=== PATIENT | male | born 1950 | race Caucasian/White ===

== ENCOUNTER 2018-01-22 11:34 | Emergency (ER) | payer OTHER ==
[~2018-01-22] VITALS: Ht 172.7 cm; Wt 105.1 kg
[2018-01-22 12:33] LABS: APPEARANCE CLEAR ((CLEAR)); BILIRUBIN NEGATIVE; BLOOD SMALL; COLOR YELLOW ((YELLOW)); GLUCOSE (STRIP) NEGATIVE; KETONES NEGATIVE; LEUKOCYTES NEGATIVE; NITRITE NEGATIVE; PROTEIN (STRIP) NEGATIVE; SPECIFIC GRAVITY 1.021 (1.000-1.030); UROBILINOGEN 0.2 MG/DL (0.2-1.0)
[2018-01-22 12:52] LABS: BACTERIA RARE /HPF; EPITHELIAL CELLS NONE SEEN /HPF; MUCUS TRACE /LPF; WHITE BLOOD CELLS 0-5 /HPF (0-5)
[2018-01-22 13:01] LABS: HEMATOCRIT 44.4 % (38.0-50.0); HEMOGLOBIN 15.5 G/DL (12.5-16.6); MCH 31.1 PG (29.0-34.0); MCHC 34.9 G/DL (30.0-36.0); MCV 89.2 FL (86-99); PLATELET COUNT 165 K/uL (156-360); RBC DIS.WIDTH-CV 11.9 % (11.8-14.6); RED BLOOD COUNT 4.98 M/uL (4.00-5.50); WHITE BLOOD COUNT 5.6 K/uL (4.1-10.2)
[2018-01-22 13:14] LABS: CHLORIDE 102 mEq/L (99-109); SODIUM 136 mEq/L (136-147)
[2018-01-22 13:16] LABS: GLUCOSE 121 mg/dL (70-99)
[2018-01-22 13:20] LABS: GFR ESTIMATE (CALCULATED) > 59 mL/min/ (58.99-99999)
[2018-01-22 13:21] LABS: UREA NITROGEN (BUN) 8 mg/dL (9-23)
[2018-01-22] MEDS ORDERED: NIZORAL 2% CREA15 GM TP (15:12)
[2018-01-22] MEDS ORDERED: NORCO 5/3251 TABLET PO (15:12)
[2018-01-22 15:25] VITALS: BP 108/64
== END 2018-01-22 14:26 | disposition home or self-care (01) ==
LOC: EME 11:34
PROVIDERS: Physician Assistant
DX: B35.6 Tinea cruris (principal); R10.30 Lower abdominal pain, unspecified; Z88.6 Allergy status to analgesic agent; F17.200 Nicotine dependence, unspecified, uncomplicated
CPT/HCPCS: 71046; 74177; 80048; 81003; 83605; 85027; 99281; 99285; J2270; J7040